=== PATIENT | male | born 1995 | race Caucasian/White ===

== ENCOUNTER 2020-05-04 12:23 | Emergency (ER) | payer SELFPAY ==
[2020-05-04 12:30] VITALS: BP 147/91; PULSE 76; RESP 17; TEMP 36.9; O2SAT 98; BMI 25.1
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
[2020-05-04 14:11] VITALS: BP 147/91; PULSE 76; RESP 17; TEMP 36.9; O2SAT 98
== END 2020-05-04 14:12 | disposition home or self-care (01) ==
PROVIDERS: Emergency Provider Nurse Practitioner
DX: S61.213A Laceration without foreign body of left middle finger without damage to nail, initial encounter (principal); R68.84 Jaw pain; V67.0XXA Driver of heavy transport vehicle injured in collision with fixed or stationary object in nontraffic accident, initial encounter; Y92.488 Other paved roadways as the place of occurrence of the external cause
CPT/HCPCS: 12001; 70355; 99202; G0463